=== PATIENT | female | born 1980 | race African-American/Black ===

== ENCOUNTER 2016-06-25 10:01 | Inpatient (IN) | payer MEDICAID ==
--- NOTE | ~2016-06-25 | US84 ---
[id number] [facility]. [facility] [address] [facility]. [place], [place] [address] [id number] I MR#: [id number] Acc #: [id number] NAME: JESUS MEIER : 1980 SEX: F STUDY DATE/TIME: 06/26/2016 11:05 UNIT: [facility] ROOM: 564 STUDY DESCRIPTION: US LE Veins Complete Cordell Stdy Attending Physician: Fili Hightower M.D. Ordering Physician: Fili Hightower M.D. Primary Care Physician: [facility] MEDICAL IMAGING REPORT This report is preliminary unless electronic signature is present EXAM Bilateral lower extremity venous Doppler 06/26/2016 COMPARISON None. HISTORY Recently diagnosed pulmonary embolism, evaluation for DVT but no current leg swelling. TECHNIQUE Venous ultrasound examination of both lower extremities was performed using grayscale, spectral Doppler and color flow Doppler imaging. FINDINGS The examination is negative. There is no evidence of deep venous thrombus from the groin to the lower calf bilaterally. Visualized greater saphenous veins are also patent. IMPRESSION Negative examination. No evidence of lower extremity deep venous thrombosis. Dictated by... Harshal Goins M.D. THIS IS AN ELECTRONICALLY VERIFIED REPORT Harshal Goins M.D. at 06/29/2016 1:49 PM ELMA/enriqueta TD: 06/27/2016 09:56 JOB #: [id number] MEDICAL IMAGING REPORT Page 1 of 1 COPY
--- NOTE | ~2016-06-25 | CO ---
Unit #: [id number] #: [id number] Patient: JESUS MEIER [id number] [address] [address] [id number] I MR#: [id number] NAME: JESUS MEIER ROOM: 564 Age: 35 Sex: F Admission Date: 06/25/2016 : 1980 Attending Physician: Fili Hightower M.D. Primary Care Physician: [facility] Consultation Date: 06/25/2016 CONSULTATION REPORT REASON FOR CONSULTATION Pulmonary embolism. CHIEF COMPLAINT Right-sided abdominal and flank pain. HISTORY OF PRESENT ILLNESS This is a 35-year-old female with a history of preeclampsia recent. She is four months . She presents with a complaint of right-sided abdominal pain. CT of abdomen and pelvis showed right lower lobe pulmonary embolism with infarction and effusion. I am seeing her at the bedside. She is complaining of right-sided abdominal pain. Denies any headache, blurry vision, no chest pain, no shortness of breath. PAST MEDICAL HISTORY Preeclampsia. PAST SURGICAL HISTORY . HOME MEDICATIONS None. SOCIAL HISTORY Smokes one pack per day. Denies alcohol or drug abuse. FAMILY HISTORY Her grandmother has DVT. PHYSICAL EXAMINATION VITAL SIGNS: Temperature 98, pulse 67, respirations 12, blood pressure 130/70. NEUROLOGIC: Awake, alert, oriented. No neurologic deficits. HEENT: PERRLA. EOMI. NECK: Supple, no JVD. LUNGS: Bilateral air entry, bilateral mild rhonchi. ABDOMEN: Nontender, soft. Positive bowel sounds. EXTREMITIES: No edema. DIAGNOSTIC STUDIES LABORATORY: Reviewed. IMAGING: Reviewed. Unit #: [id number] #: [id number] Patient: JESUS MEIER ASSESSMENT AND PLAN 1. Pulmonary embolism. 2. Leukocytosis. 3. Tobacco use. 4. Likely underlying obstructive sleep apnea. 5. Rule out chronic obstructive pulmonary disease. PLAN 1. Admit the patient. 2. Continue anticoagulation. 3. Consult Hematology. 4. Patient will be closely monitored. 5. Please see orders for detailed plan. Thank you very much for this consultation. Dictated by... Jack Groves TD: 06/26/2016 16:13 JOB #: [id number] CONSULTATION REPORT X Karan Leblanc MD CONSULTATION REPORT
--- NOTE | ~2016-06-25 | HP ---
Unit #: [id number] #: [id number] Patient: JESUS MEIER [id number] [facility] [address] [facility]. [place], [place] [address] [id number] E MR#: [id number] NAME: JESUS MEIER ROOM: Age: 35 Sex: F Admission Date: 06/25/2016 : 1980 Attending Physician: Adolfo Stevens M.D. Primary Care Physician: [facility] HISTORY AND PHYSICAL CHIEF COMPLAINT Right-sided abdominal pain. HISTORY OF PRESENT ILLNESS The patient is a 35-year-old female with past medical history of preeclampsia, who presented to the emergency department for evaluation of the above. The patient states that she was in her usual state of health until June 23, 2016, when she developed right-sided flank and chest pain. She described the pain as "sharp." She states that it has been fairly constant in nature. It is exacerbated by breathing. There are no alleviating factors. She denies any cough. She states that she thinks she had some chills yesterday. She did have one bout of emesis. She denies any diarrhea. She denies any similar pain. In the emergency department, pulse was 107, temperature 99.4, oxygen saturation 95% on room air. CT of the abdomen and pelvis with contrast was done and showed right lower lobe pulmonary emboli with infarct and small pleural effusion. She was given Lovenox 1 mg/kg subcutaneous. She was being admitted to [facility] for evaluation and further treatment. PAST MEDICAL HISTORY Preeclampsia. PAST SURGICAL HISTORY . SOCIAL HISTORY The patient lives with her children. She smokes Black and Mild. There is no alcohol or illicit drug use. She is working at [employer]. FAMILY HISTORY Notable for her maternal grandmother having possibly DVT or PE. ALLERGIES No known allergies. HOME MEDICATIONS None. REVIEW OF SYSTEMS A complete review of systems is negative except as indicated in the HPI. Unit #: [id number] #: [id number] Patient: JESUS MEIER The patient denies a personal history of blood clots. She does have a 4 month old at home. She has not had any recent surgery aside from the in January. DIAGNOSTIC STUDIES LABORATORY: Urinalysis notable for 1+ protein, 100 glucose, 5-10 red blood cells. Complete blood count notable for white blood cell count of 12.3. Comprehensive metabolic panel is notable for a glucose of 65. Lipase 16. IMAGING: CT of the abdomen and pelvis with contrast showed right lower lobe PE with infarct and small pleural effusion. PHYSICAL EXAMINATION VITAL SIGNS: Temperature is 99.4, pulse 107, respirations 22, blood pressure 137/60, oxygen saturation is 95% on room air. GENERAL: The patient is a very pleasant -[place] female who is awake and alert. HEENT: The head is atraumatic. Mucous membranes are moist. NECK: Supple. Trachea is midline. CARDIOVASCULAR: Regular rate and rhythm. LUNGS: Clear to auscultation bilaterally with no increased work of breathing. ABDOMEN: Soft, nontender with bowel sounds present in all four quadrants. EXTREMITIES: Nontender with no pedal edema. NEUROLOGIC: The patient is awake and alert. She follows commands. PSYCHIATRIC: Mood and affect are normal. The patient is cooperative. SKIN: Skin of examined areas is warm and dry. ASSESSMENT The patient is a 35-year-old female with: 1. Pulmonary embolus. 2. Pulmonary infarct with pleural effusion. 3. Leukocytosis. 4. Tobacco abuse. PLAN 1. Admit to intermediate level. 2. Healthy heart diet. 3. A 2D echo for further evaluation of possible right heart strain. 4. Bilateral lower extremity venous Dopplers. 5. High-intensity heparin drip per protocol for pulmonary embolus to start when next dose of Lovenox is due. 6. Consult Dr. Leblanc regarding pulmonary embolus with infarct and pleural effusion. 7. Consult Dr. Gonsales regarding pulmonary embolus. 8. Check EKG and cardiac enzymes. 9. Check coags. 10. P.r.n. Toradol. 11. P.r.n. Zofran. 12. P.r.n. Tylenol. 13. Repeat labs in the morning. 14. Additional workup and consultants based on above. Dictated by Unit #: [id number] #: [id number] Patient: JESUS MEIER M.D. Katerine TD: 06/25/2016 14:20 JOB #: [id number] HISTORY AND PHYSICAL X Stephanie Haynes MD HISTORY AND PHYSICAL
--- NOTE | ~2016-06-25 | CT16 ---
[facility] A Service of [facility] RADIOLOGY TEXT RESULTS PATIENT: JESUS MEIER LOCATION: [facility] 564-01 : [birth year] UNIT #: [id number] AGE: [address]: Fili Hightower MD SEX: F ORDER DR: [id number] [facility] [address] [facility]. [place], [place] [address] [id number] I MR#: [id number] Acc #: [id number] NAME: JESUS MEIER : 1980 SEX: F STUDY DATE/TIME: 06/26/2016 11:54 UNIT: [facility] ROOM: [facility] STUDY DESCRIPTION: CT Angio Chest for PE Attending Physician: Fili Hightower M.D. Ordering Physician: Fili Hightower M.D. Primary Care Physician: [facility] MEDICAL IMAGING REPORT This report is preliminary unless electronic signature is present EXAM Chest CT angiogram with contrast 06/26/2016 PROCEDURE Axial contrast-enhanced chest CT angiogram with three-dimensional reformats. COMPARISON CT abdomen and pelvis dated 06/25/2016. HISTORY Abnormal abdominal and pelvic CT demonstrating pulmonary embolism on 06/25/2016. History of right upper quadrant pain for 2-3 days with chest pain and short of breath. TECHNIQUE This CT examination was performed with one or more of the following radiation dose reduction techniques: automatic exposure control, adjustment of mA and/or kV according to patient size, and iterative reconstruction. FINDINGS There is extensive right lower lobe consolidation, elevation of the right hemidiaphragm and a small to moderate right pleural effusion. There is lesser left basilar opacity likely atelectasis. Bolus timing is poor but there is none the less evident pulmonary embolism in the right lower lobe as seen on the CT abdomen and pelvis. No other emboli are seen but bolus timing is not conducive to evaluation of the majority of the pulmonary vasculature. The thoracic aorta is normal in caliber. Upper abdomen is unremarkable. IMPRESSION 1. Poor bolus timing, with limited evaluation of the pulmonary vessels though the large right lower lobe emboli seen on the abdomen and pelvis [facility] A Service of [facility] RADIOLOGY TEXT RESULTS PATIENT: JESUS MEIER LOCATION: [facility] 564-01 : [birth year] UNIT #: [id number] AGE: [address]: Fili Hightower MD SEX: F ORDER DR: CT are readily demonstrated. No other emboli are seen but again evaluation of the pulmonary vessels is likely limited. 2. Extensive right lower lobe consolidation as well as accompanying effusion, certainly may represent a right lower lobe pulmonary infarct. There is some additional opacity along the diaphragm and left posterior lung base and right middle lobe but this is likely atelectasis. There is no central airway obstruction. There is no mediastinal mass and the thoracic aorta is normal in caliber. STAT * RESULT Dictated by... Harshal Goins M.D. THIS IS AN ELECTRONICALLY VERIFIED REPORT Harshal Goins M.D. at 06/29/2016 1:44 PM ELMA/enriqueta TD: 06/26/2016 13:01 JOB #: [id number] MEDICAL IMAGING REPORT Page 1 of 1 COPY
--- NOTE | ~2016-06-25 | CT2 ---
[facility] A Service of [facility] RADIOLOGY TEXT RESULTS PATIENT: JESUS MEIER LOCATION: [facility] 564-01 : [birth year] UNIT #: [id number] AGE: [address]: Stephanie Haynes MD SEX: F ORDER DR: [id number] [facility]. [place], [place] [address] [id number] E MR#: [id number] #: [id number] NAME: JESUS MEIER : 1980 SEX: F STUDY DATE/TIME: 06/25/2016 11:08 UNIT: [facility] ROOM: STUDY DESCRIPTION: CT Abd and Pelv W Cont Attending Physician: Adolfo Stevens M.D. Ordering Physician: Adolfo Stevens M.D. Primary Care Physician: [facility] MEDICAL IMAGING REPORT This report is preliminary unless electronic signature is present EXAM Abdomen and pelvis CT with contrast HISTORY Right upper quadrant abdominal pain for the past 2 days with accompanying sharp chest pain and shortness of breath. TECHNIQUE Axial images were obtained with oral and intravenous contrast. 100 mL of Isovue was used. This CT exam was performed with one or more of the following radiation dose reduction techniques: automatic exposure control, adjustment of mA and/or kV according to patient size, and iterative reconstruction. FINDINGS There is dense alveolar consolidation with volume loss at the right lung base and a small right pleural effusion. I am suspicious for a filling defect in the right lower lobe pulmonary artery. I suspect the patient has had a right lower lobe pulmonary embolism with developing pulmonary infarction. No upper abdominal solid organ abnormalities are noted. There is no evidence of retroperitoneal adenopathy or ascites and no distended bowel loops are seen. In the pelvis there is no evidence of adenopathy, mass or fluid collection. Generalized scoliosis is seen in the lower thoracic and upper lumbar region convex to the left. IMPRESSION Right lower lobe pulmonary embolism with pulmonary infarction and adjacent small pleural effusion. No acute findings in the abdomen. Dictated by... Edward Calvert M.D. [facility] A Service of [facility] RADIOLOGY TEXT RESULTS PATIENT: JESUS MEIER LOCATION: [facility] 564-01 : 78 UNIT #: [id number] AGE: [address]: Stephanie Haynes MD SEX: F ORDER DR: THIS IS AN ELECTRONICALLY VERIFIED REPORT Edward Calvert M.D. at 06/25/2016 4:55 PM Panfilo TD: 06/25/2016 14:47 JOB #: [id number] MEDICAL IMAGING REPORT COPY
--- NOTE | ~2016-06-25 | DS ---
Unit #: [id number] #: [id number] Patient: JESUS MEIER [id number] [address] [address] [id number] I MR#: [id number] NAME: JESUS MEIER ROOM: 564 Age: 35 Sex: F Admission Date: 06/25/2016 : 1980 Discharge Date: 06/27/2016 Attending Physician: Fili Hightower M.D. Primary Care Physician: [facility] DISCHARGE SUMMARY REASON FOR ADMISSION Right lower lobe pulmonary embolism. HISTORY OF PRESENT ILLNESS/HOSPITAL COURSE The patient was admitted after 2 to 3 days history of abdominal pain. She had recently given and received Depo-Provera IM as well as was smoking tobacco. She developed acute abdominal pain on the right side, underwent CT of abdomen and pelvis in the emergency room which did reveal pulmonary infarct as well as right lower lobe pulmonary embolism. She was admitted and placed on telemetry floor. Heparin drip was initiated. Consultation was placed to Pulmonary service as well as Hematology/Oncology Services. Both Services evaluated and saw the patient. Plan will be for patient to be discharged on Eliquis 10 mg p.o. b.i.d. x7 days as well as 5 mg p.o. b.i.d. afterwards. Hypercoagulability workup was initiated. The patient is to follow up as an outpatient for results in regard to the same. 2D echocardiogram performed in this hospital admission did reveal normal ejection fraction with no right ventricular strain noted. The patient discharged home. She is to quit smoking. No further hormones for contraceptive purposes. FOLLOWUP Dr. Natalie Davies, [facility] in 7 to [address] Sacha Garza for a hypercoagulable workup results. DISCHARGE DIAGNOSES 1. Right lower lobe pulmonary embolism. 2. Morbid obesity. 3. Tobacco abuse. 4. Contraceptive use using IM hormone. DISCHARGE MEDICATIONS Eliquis 10 mg p.o. b.i.d. x7 days then 5 mg p.o. b.i.d. afterwards. Dictated by... Fili Hightower M.D. ISN/tatyanal Unit #: [id number] #: [id number] Patient: ANITHA MEIERHARITHA TD: 06/27/2016 23:48 JOB #: [id number] DISCHARGE SUMMARY X Fili Hightower MD DISCHARGE SUMMARY
--- NOTE | ~2016-06-25 | EKG ---
PATIENT: JESUS MEIER UNIT #: [id number] Ventricular Rate: 100 BPM Atrial Rate: 100 BPM P-R Interval: 156 ms QRS Duration: 86 ms Q-T Interval: 346 ms QTC Calculation(Bezet): 446 ms P Sanderson: 34 degrees Calculated R Sanderson: 43 degrees Calculated T Sanderson: 25 degrees Diagnosis Line: Normal sinus rhythm Diagnosis Line: Normal ECG Diagnosis Line: No previous ECGs available Diagnosis Line: Confirmed by NEMESIO VALVERDE MD ([id number]) on 06/28/2016 Diagnosis Line: 7:22:32 AM INTERPRETING MD: NICOLLE MEDINA
--- NOTE | ~2016-06-25 | CO ---
Unit #: [id number] #: [id number] Patient: JESUS MEIER [id number] [place], [place] [address] [id number] I MR#: [id number] NAME: JESUS MEIER ROOM: 564 Age: 35 Sex: F Admission Date: 06/25/2016 : 1980 Attending Physician: Fili Hightower M.D. Primary Care Physician: Jana Marrufo [facility] CONSULTATION REPORT HISTORY OF PRESENT ILLNESS Ms. Reich is a very pleasant 35-year-old lady with a diagnosis of preeclampsia and delivered a baby 4 months ago. She presents to the emergency room with a chief complaint of shortness of breath. She stated that on 06/24/2016, developed chest pain, flank pain sharp associated with shortness of breath, continued. She came into the emergency department and CT imaging was done, which showed a large right lower lobe pulmonary emboli with infarction. She was admitted to [facility] for treatment, has been placed on heparin and has done well with that. We actually have gone ahead and ordered a hypercoagulable workup for her and I have talked about the major risk factors that she had is smoking. PAST MEDICAL HISTORY 1. Preeclampsia. 2. Recent delivery of a baby 4 months ago. 3. History of tobacco abuse disorder. PAST SURGICAL HISTORY C section. SOCIAL HISTORY Lives with her children. No alcohol, no drug use. She works at [employer]. FAMILY HISTORY Maternal grandmother had DVT/PE. No history of clotting in first-degree relatives. ALLERGIES No known drug allergies. MEDICATIONS At home were none. REVIEW OF SYSTEMS 1. Positive for chest pain. 2. Positive for shortness of breath. 3. Positive for feeling weak and tired and run down. Twelve points are otherwise negative. DIAGNOSTIC STUDIES IMAGING STUDIES: Imaging was reviewed. Notes from the chart reviewed including the CT confirming the diagnosis of pulmonary embolus. Unit #: [id number] #: [id number] Patient: JESUS MEIER PHYSICAL EXAMINATION VITAL SIGNS: The temperature is 99.4, pulse 107, respirations 22, blood pressure 137/60, 95% sats on room air. HEENT: Eyes show no scleral icterus. Pupils are equal. Mouth is moist. Hearing intact. LUNGS: Clear. Equal breath sounds. HEART: Regular rate and rhythm. No peripheral edema. ABDOMEN: Benign. No adenopathy. SKIN: No rashes. NEUROLOGIC: She is awake, alert, and oriented to person, place, and time. Normal judgment, affect and insight. Cranial nerves 2 through 12 are intact. Normal gait. No joint effusions or problems. EXTREMITIES: She has no swelling in her legs. No pain. This was not clear exactly where this clot came from and otherwise negative workup. ASSESSMENT A very pleasant lady with a diagnosis of pulmonary embolism that was unprovoked; although, she is four months . She is smoker, which is a risk factor and we will get a hypercoagulable workup, which will take roughly weeks to get back. She has been anticoagulated with heparin for 24 hours plus. I think tomorrow we could switch her over to Xarelto 15 mg b.i.d. and since she looks so good tomorrow, probably let her go home. I had obtained the CT since she had a pulmonary infarction whether consideration for thrombectomy would be considered, but since she is asymptomatic and looks great, I think we will defer that and just put her on anticoagulation. She can follow up with me in clinic and will follow up with hypercoagulable workup. Dictated by... Sacha Garza M.D. DINA/sarah TD: 06/26/2016 20:30 JOB #: [id number] CONSULTATION REPORT X X CONSULTATION REPORT
[2016-06-25 10:02] LABS: URINE SOURCE CLEAN CATCH
[2016-06-25 10:08] LABS: BASOPHIL# 0.1 X10e3 (0-0.3); BASOPHIL% 0.7 % (0-2.5); EOSINOPHIL% 0.2 % (0.0-7.0); HEMATOCRIT 41.6 % (35.0-45.0); HEMOGLOBIN 13.5 gm/dL (12.0-16.0); LYMPHOCYTE# 1.5 X10e3 (1.0-3.5); LYMPHOCYTE% 11.8 % (17.0-45.0); MEAN CORPUSCULAR HEMOGLOBIN 31.8 PG (28-34); MEAN CORPUSCULAR HGB CONC 32.5 g/dL (30-36); MEAN PLATELET VOLUME 8.8 FL (6.5-11.5); MONOCYTE# 1.6 X10e3 (0-1.0); MONOCYTE% 13.2 % (3.0-12.0); NEUTROPHIL# 9.2 X10e3 (1.5-7.1); NEUTROPHIL% 74.1 % (40-75); PLATELET COUNT 233 X10e3 (140-420); RED BLOOD COUNT 4.25 X10e (3.90-5.30); RED CELL DISTRIBUTION WIDTH 14.3 % (11.0-15.5); URINE APPEARANCE CLEAR; URINE BLOOD NEG (NEG); URINE COLOR DK YELLOW; URINE GLUCOSE 100 MG/DL (NEG); URINE KETONE NEG (NEG); URINE LEUKOCYTE ESTERASE NEG (NEG); URINE NITRATE NEG (NEG); URINE PROTEIN 1+ (NEG); URINE SPECIFIC GRAVITY 1.039 (1.003-1.035); WHITE BLOOD COUNT 12.3 X10e3 (4.0-10.5)
[2016-06-25 10:11] LABS: URINE BACTERIA AUWI NEG (NEGATIVE); URINE SQUAMOUS EPITHELIAL CELL OCC /[HPF]; UWBCS1 AUWI 0-2 (0-5)
[2016-06-25 10:13] LABS: CULTURE INDICATED? NO; URINE BILIRUBIN NEG (NEG)
[2016-06-25 10:14] LABS: DIFF IND NO
[2016-06-25 10:40] LABS: ALBUMIN SERUM 4.1 g/dL (3.5-5.0); ALKALINE PHOSPHATASE 65 U/L (32-92); ALT (SGPT) 24 U/L (10-40); AST (SGOT) 21 U/L (10-42); BILIRUBIN, DIRECT 0.2 mg/dL (0.0-0.2); BILIRUBIN,INDIRECT 0.8 mg/dL (0.0-0.9); BLOOD UREA NITROGEN 9 mg/dL (9-23); CALCIUM SERUM 9.5 mg/dL (8.4-10.2); CARBON DIOXIDE 29 mmol/L (22-31); CHLORIDE 101 mmol/L (100-111); CREATININE SERUM 0.6 mg/dL (0.6-1.4); GLOM FILT RATE Estimated ABOVE60 mL/min (>60); GLUCOSE FASTING 65 mg/dL (70-110); LIPASE 16 U/L (22-51); POTASSIUM 3.8 mmol/L (3.5-5.1); PROTEIN TOTAL SERUM 8.1 g/dL (6.0-8.3); SODIUM 137 mmol/L (135-145)
[2016-06-25 15:24] LABS: INR 1.1; PROTHROMBIN TIME (PATIENT) 11.3 SECONDS (9.6-11.5)
[2016-06-25 15:54] LABS: %MB 4.7 % (0.0-4.0)
[2016-06-25 21:04] LABS: %MB 4.7 % (0.0-4.0); MB 3.3 ng/ml
[2016-06-26 02:34] LABS: BASOPHIL# 0.1 X10e3 (0-0.3); BASOPHIL% 0.8 % (0-2.5); EOSINOPHIL% 0.2 % (0.0-7.0); HEMOGLOBIN 11.9 gm/dL (12.0-16.0); LYMPHOCYTE# 1.3 X10e3 (1.0-3.5); LYMPHOCYTE% 10.8 % (17.0-45.0); MEAN CELL VOLUME 97.7 FL (83-96); MEAN CORPUSCULAR HEMOGLOBIN 31.4 PG (28-34); MEAN CORPUSCULAR HGB CONC 32.1 g/dL (30-36); MEAN PLATELET VOLUME 9.3 FL (6.5-11.5); MONOCYTE# 1.6 X10e3 (0-1.0); MONOCYTE% 13.3 % (3.0-12.0); NEUTROPHIL# 8.9 X10e3 (1.5-7.1); NEUTROPHIL% 74.9 % (40-75); PLATELET COUNT 204 X10e3 (140-420); RED BLOOD COUNT 3.79 X10e (3.90-5.30); RED CELL DISTRIBUTION WIDTH 14.1 % (11.0-15.5); WHITE BLOOD COUNT 11.9 X10e3 (4.0-10.5)
[2016-06-26 02:36] LABS: DIFF IND NO
[2016-06-26 02:48] LABS: INR 1.1; PROTHROMBIN TIME (PATIENT) 11.5 SECONDS (9.6-11.5)
[2016-06-26 02:50] LABS: PARTIAL THROMBOPLASTIN TIME 50.4 SECONDS (23.5-31.3)
[2016-06-26 02:54] LABS: CK TOTAL 55 IU/L (26-140)
[2016-06-26 03:27] LABS: ALBUMIN SERUM 3.3 g/dL (3.5-5.0); ALKALINE PHOSPHATASE 64 U/L (32-92); ALT (SGPT) 28 U/L (10-40); AST (SGOT) 26 U/L (10-42); BILIRUBIN,TOTAL 0.9 mg/dL (0.2-2.0); BLOOD UREA NITROGEN 11 mg/dL (9-23); CALCIUM SERUM 8.3 mg/dL (8.4-10.2); CARBON DIOXIDE 26 mmol/L (22-31); CHLORIDE 108 mmol/L (100-111); CREATININE SERUM 0.5 mg/dL (0.6-1.4); GLOM FILT RATE Estimated ABOVE60 mL/min (>60); GLUCOSE FASTING 125 mg/dL (70-110); POTASSIUM 3.8 mmol/L (3.5-5.1); PROTEIN TOTAL SERUM 7.4 g/dL (6.0-8.3); SODIUM 136 mmol/L (135-145)
[2016-06-27] MEDS ORDERED: TYLENOL325 M1 PO (11:34)
[2016-06-27] MEDS ORDERED: ELIQUIS5 MG PO (11:35)
[2016-06-28 21:33] LABS: PROTEIN C ACTIVITY 120 % (70-180); PROTEIN S 50 % (60-140)
[2016-07-01 05:38] LABS: CARDIOLIPIN IGG (LUPUS) <14 GPL (<=14); CARDIOLIPIN IGM (LUPUS) <12 MPL (<=12); DRVVT CONFIRM Negative (Negative); DRVVT MIX INTERP (LUPUS) Not Indicated (()); HEXAGONAL PHASE CONF (LUPUS) Positive (Negative); IMM PTT LA MIX NOT CORRECTED (()); PROTROMBIN TIME LUPUS 10.3 sec (9.0-11.5); PT (LA MIX STUDY) 10.3 sec (<=11.5); PTT MIX INTERP Has been added (()); PTT-LA 56 sec (<=40); PTT-LA SCREEN (LUPUS) 56 sec (<=40); THROMBIN TIME LUPUS 15 sec (13-19); dRVVT SCREEN (LUPUS) 49 sec (<=45)
== END 2016-06-27 12:20 | disposition home or self-care (01) | DRG 176 ==
LOC: CED 10:01 → C5C 13:05
PROVIDERS: Emergency Medicine; Family Medicine; Internal Medicine Hematology & Oncology
DX: I26.99 Other pulmonary embolism without acute cor pulmonale (principal); J90 Pleural effusion, not elsewhere classified; F17.210 Nicotine dependence, cigarettes, uncomplicated; D72.829 Elevated white blood cell count, unspecified; G47.33 Obstructive sleep apnea (adult) (pediatric); J44.9 Chronic obstructive pulmonary disease, unspecified; E66.01 Morbid (severe) obesity due to excess calories; Z68.34 Body mass index [BMI] 34.0-34.9, adult; Z83.6 Family history of other diseases of the respiratory system
CPT/HCPCS: 36415; 71275; 74177; 80048; 80053; 80076; 81003; 81240; 81241; 81291; 82550; 82553; 83690; 84484; 84703; 85025; 85301; 85303; 85306; 85597; 85598; 85610; 85613; 85670; 85730; 86146; 86147; 86148; 87040; 87086; 88184; 88185; 93005; 93306; 93970; 94640; 94760; 96374; 96375; 99285; J1644; J1650; J1885; J2405; Q9967